=== PATIENT | male | born 1995 | race Two or more races ===

== ENCOUNTER 2025-03-24 21:03 | Emergency (ER) | payer OTHER ==
[~2025-03-24] VITALS: Ht 175.3 cm; Wt 86.2 kg
[2025-03-24] MEDS ORDERED: CEFTRIAXONE SODIUM 1,000 MG VIAL IM ONE (22:30)
[2025-03-24] MEDS ORDERED: NEOMYCIN/BACITRACIN/POLYMYXINB 28.35 GM OINT..GM. TOP ONE (22:30)
[2025-03-24] MEDS ORDERED: KETOROLAC TROMETHAMINE 60 MG VIAL IM ONE (22:30)
[2025-03-24] MEDS ORDERED: IBUPROFEN800 MG PO (22:40)
[2025-03-24] MEDS ORDERED: CEPHALEXIN500 MG PO (22:40)
[2025-03-24] MEDS ORDERED: DOXYCYCLINE HY100 MG PO (22:44)
== END 2025-03-24 22:47 | disposition home or self-care (01) ==
LOC: ER 21:03
DX: L03.012 Cellulitis of left finger (principal)